=== PATIENT | female | born 1995 | race Caucasian/White ===

== ENCOUNTER 2022-10-20 14:45 | Emergency (ER) | payer BC, SELFPAY ==
--- NOTE | ~2022-10-20 | CT_ITS ---
EXAMINATION: CT soft tissue neck w con DATE: 10/20/2022 19:19 INDICATION: TECHNIQUE: Computed tomography (CT) of the neck was performed with 75 mL Omnipaque-350 intravenous co ntrast. The dose-length product was 551.35 mGy-cm. COMPARISON: None FINDINGS: The thyroid gland is unremarkable. The submandibular and parotid glands are symmetric. Prominent bilateral anterior and posterior cervical chain nodes that are not pathologic by size criteria. Bilat eral palatine tonsillar enlargement, right greater than left, no abscess. The superior mediastinum i s unremarkable. The airway is unremarkable. Parapharyngeal and pre-glottic fat planes are preserv ed. Normal-appearing enhancing arteries. The orbits are unremarkable. Visualized sinuses and mas toid air cells are well aerated. Visualized lung parenchyma clear. There is cervical spondylosis. IMPRESSION: Bilateral palatine tonsillar enlargement. No CT evidence of abscess. Reviewed, dictated and finalized at location K.
[2022-10-20 14:47] VITALS: BP 132/65; PULSE 106; RESP 16; TEMP 36.4; O2SAT 100
--- NOTE | 2022-10-20 17:21 | ED.GENADULT ---
HPI - General Adult General Chief complaint: Unspecified Stated complaint: peritoncillar abcess Time Seen by Provider: 10/20/22 17:01 Source: patient Mode of arrival: ambulatory Limitations: no limitations History of Present Illness HPI narrative: This is a 27-year-old female who presents to the ED with chief complaint of sore throat beginning at 2 PM yesterday. Patient reports fevers of 101 ?F yesterday. She has been controlling them with Tylenol and ibuprofen. She reports swallowing is difficult due to the pain. Denies any known sick contacts. Denies abdominal pain, nausea, vomiting, cough, shortness of breath, trismus, drooling, voice changes. Related Data Allergies Allergy/AdvReac Type Severity Reaction Status Date / Time No Known Allergies Allergy Unknown Verified 10/20/22 17:59 Review of Systems Review of Systems: All systems as dictated in HPI Exam Narrative: GENERAL: Well-appearing, well-nourished, and in no acute distress. HEAD: Normocephalic, atraumatic. EYES: PERRLA and EOMI. ENT: Right tonsillar enlargement with exudates. Minimal uvula deviation. Nares clear, no rhinorrhea or epistaxis. Mucous membranes moist. No trismus, drooling or muffled voice. NECK: Supple. No adenopathy or masses. CHEST: No respiratory distress. Clear to auscultation. No wheezes rales or rhonchi HEART: Regular rate and rhythm. No murmur heard. Normal peripheral pulses. ABDOMEN: Soft, nontender, nondistended, normal active bowel sounds. MSK: Normal range of motion. No edema. SKIN: Warm, dry, no rash. NEURO: Alert and oriented x3. No focal deficits. PSYCH: Normal mood and affect. Course Vital Signs Vital signs: Vital Signs Temperature 97.5 F L 10/20/22 14:47 Pulse Rate 106 H 10/20/22 14:47 Respiratory Rate 16 10/20/22 14:47 Blood Pressure 132/65 10/20/22 14:47 Pulse Oximetry 100 10/20/22 14:47 Oxygen Delivery Room Air 10/20/22 14:47 Temperature 97.5 F L 10/20/22 14:47 Pulse Rate 78 10/20/22 20:16 Respiratory Rate 18 10/20/22 20:16 Blood Pressure 137/87 10/20/22 20:16 Pulse Oximetry 99 10/20/22 20:16 Oxygen Delivery Room Air 10/20/22 14:47 Medical Decision Making MDM Narrative Medical decision making narrative: This is a 27-year-old female who presents to the ED with chief complaint of sore throat for just over a day. Vitals show initial slight tachycardia 106 but otherwise stable. Exam reveals right tonsillar hypertrophy with exudates. Slight uvular deviation. Lab work shows elevated white count at 12.6 and a normal CMP. Strep test is negative. Soft tissue neck CT was ordered and showed Bilateral palatine tonsillar enlargement. No CT evidence of abscess. Symptoms consistent with tonsillitis. She feels much better after receiving Toradol, dexamethasone and antibiotics here. Her vital signs have normalized. Prescription for Augmentin given and instructed to follow-up with PCP. Pt will be discharged in stable condition. Return precautions given and supportive measures discussed. Pt is understanding and agreeable with plan for discharge and follow-up with PCP. Vital Signs Vital Signs: Vital Signs Temperature 97.5 F L 10/20/22 14:47 Pulse Rate 106 H 10/20/22 14:47 Respiratory Rate 16 10/20/22 14:47 Blood Pressure 132/65 10/20/22 14:47 Pulse Oximetry 100 10/20/22 14:47 Oxygen Delivery Room Air 10/20/22 14:47 Temperature 97.5 F L 10/20/22 14:47 Pulse Rate 78 10/20/22 20:16 Respiratory Rate 18 10/20/22 20:16 Blood Pressure 137/87 10/20/22 20:16 Pulse Oximetry 99 10/20/22 20:16 Oxygen Delivery Room Air 10/20/22 14:47 Lab Data 10/20/22 17:56 10/20/22 17:56 Labs: Lab Results 10/20/22 10/20/22 Range/Units 17:54 17:56 WBC 12.6 H (4.5-10.0) K/mm3 RBC 4.61 (4.2-5.4) M/mm3 Hgb 13.0 (12.0-15.0) g/dL Hct 39.4 (37.0-47.0) % MCV 85.5 (80-100) fl MCH 28.2 (26-34)
[2022-10-20] MEDS: SODIUM CHLORIDE 0.9% IV 1,000 ML 999 ML IV CONT (17:59)
[2022-10-20] MEDS: KETOROLAC 15 MG/ML VIAL (*BKC) IV PUSH (17:59)
[2022-10-20 18:03] LABS: Basophils Percent Auto 0.3 % (0.2-1.2); Eosinophils Percent Auto 0.1 % (0-4.4); Hematocrit 39.4 % (37.0-47.0); Immature Granulocyte Absolute 0.06 K/mm3 (0.00-0.031); Immature Granulocyte Percent A 0.5 % (0-0.5); Lymphocytes Absolute Auto 1.32 K/mm3 (0.9-3.2); Lymphocytes Percent Auto 10.5 % (18.3-44.2); Mean Corpuscular Hemoglobin 28.2 pg (26-34); Mean Corpuscular Volume 85.5 fl (80-100); Mean Platelet Volume 9.6 fl (7.4-10.4); Monocytes Absolute Auto 0.7 K/mm3 (0.1-0.6); Monocytes Percent Auto 5.2 % (2.6-8.5); Neutrophils Absolute Auto 10.5 K/mm3 (1.3-6.7); Neutrophils Percent Auto 83.4 % (45.5-73.1); Platelet Count Result 357 k/mm3 (150-375); Red Blood Count 4.61 M/mm3 (4.2-5.4); Red Cell Distribution Width 12.9 % (11.5-14.5); White Blood Count 12.6 K/mm3 (4.5-10.0)
[2022-10-20 18:16] LABS: Alanine Aminotransferase 17 U/L (6-35); Albumin Level 4.5 g/dL (3.5-5.1); Alkaline Phosphatase 91 U/L (38-126); Anion Gap 12 mmol/L (8-16); Aspartate Amino Transferase 21 U/L (14-36); Bilirubin,Total 0.5 mg/dL (0.2-1.3); Blood Urea Nitrogen 7 mg/dL (7-17); Calcium 9.8 mg/dL (8.4-10.2); Carbon Dioxide 27 mmol/L (22-30); Chloride 98 mmol/L (98-107); Estimated CRCL calculation 148 ml/min; Estimated Glomerular Filt Rate > 60; Glucose 93 mg/dL (65-110); Potassium 3.4 mmol/L (3.4-5.0); Sodium 137 mmol/L (137-145)
[2022-10-20 18:26] LABS: Strep Group A RT-PCR NOT DETECTED (Negative)
[2022-10-20] MEDS: CLINDAMYCIN 450 MG in DEXTROSE 5% IN WATER 50 ML 106 MG IVPB (20:00)
[2022-10-20 20:16] VITALS: BP 137/87; PULSE 78; RESP 18; O2SAT 99
== END 2022-10-20 20:34 | disposition home or self-care (01) ==
PROVIDERS: Emergency Provider Physician Assistant
DX: J03.90 Acute tonsillitis, unspecified (principal)
CPT/HCPCS: 36415; 70491; 80053; 85025; 87651; 96361; 96365; 96367; 96375; 99284; J0696; J1100; J1885; J7030; Q9967